=== PATIENT | male | born 1975 | race Caucasian/White ===

== ENCOUNTER 2017-09-12 05:03 | Emergency (ER) | payer SELFPAY ==
[~2017-09-12] VITALS: Ht 170.2 cm; Wt 93.5 kg
[2017-09-12] MEDS ORDERED: KEFLEX500 MG PO (05:31)
[2017-09-12] MEDS ORDERED: BACTRIM,SEPT1 TABLET PO (05:31)
[2017-09-12 05:45] VITALS: BP 137/93
== END 2017-09-12 05:45 | disposition home or self-care (01) ==
LOC: EME 05:03
PROC: 0H94XZZ Drainage of Neck Skin, External Approach (ICD-10-PCS; principal; 2017-09-12)
DX: L02.11 Cutaneous abscess of neck (principal); K50.90 Crohn's disease, unspecified, without complications; F17.200 Nicotine dependence, unspecified, uncomplicated
CPT/HCPCS: 99281; 99284

== ENCOUNTER 2017-10-26 20:31 | Emergency (ER) | payer SELFPAY ==
[~2017-10-26] VITALS: Ht 170.2 cm; Wt 93.5 kg
[~2017-10-26 20:31] MED LIST: BACTRIM,SEPT1 TABLET PO; KEFLEX500 MG PO
[2017-10-26 23:29] VITALS: BP 128/67
[2017-10-27] MEDS ORDERED: LIDODERM 5% P1 PATCH TD (02:47)
[2017-10-27] MEDS ORDERED: NAPROXEN500 MG PO (02:47)
[2017-10-27] MEDS ORDERED: FLEXERIL10 MG PO (02:47)
== END 2017-10-26 23:30 | disposition home or self-care (01) ==
LOC: EME 20:31
DX: M54.16 Radiculopathy, lumbar region (principal); F17.200 Nicotine dependence, unspecified, uncomplicated
CPT/HCPCS: 99281; 99283; J1885